=== PATIENT | female | born 1950 | race Two or more races ===

== ENCOUNTER 2020-09-22 12:54 | Outpatient (REF) | payer MEDICARE, MEDICAID, SELFPAY ==
--- NOTE | ~2020-09-22 | MM_ITS ---
EXAMINATION: MM SCREENING DIGITAL BREAST TOMOSYNTHESIS, BILATERAL CLINICAL INFORMATION: Screening. Asymptomatic. The lifetime risk of breast cancer based on the Tyrer-Cuzick Model is 5%. COMPARISON: Mammography: 04/16/2019, 01/28/2018, 01/12/2017 TECHNIQUE: Digital breast tomosynthesis is performed in both the craniocaudal and mediolateral oblique views along with computer-aided detection (CAD). Synthesized 2D images are generated from the tomosynthesis. FINDINGS: There are scattered areas of fibroglandular density (ACR BI-RADS breast composition Category b). There are no significant masses, abnormal calcifications, or other abnormalities. Parenchymal pattern is similar to prior exams. Benign bulky coarse calcification mid upper outer left breast is again noted as incidental finding. There are bilateral vascular and some scattered fine calcifications. No significant changes. MM/MM tomosynthesis screening BI IMPRESSION: No mammographic evidence of malignancy. ASSESSMENT: BI-RADS 2: Benign RECOMMENDATION: Routine annual mammography screening. This patient's information was entered into a reminder system with a target due date for their next mammogram.
== END 2020-09-22 12:55 | disposition home or self-care (01) ==
LOC: HO.MAMMO 12:54
PROVIDERS: Visit Provider Internal Medicine
DX: Z12.31 Encounter for screening mammogram for malignant neoplasm of breast (principal)
CPT/HCPCS: 77063; 77067

== ENCOUNTER 2020-12-28 12:59 | Outpatient (REF) | payer MEDICARE, MEDICAID, SELFPAY ==
--- NOTE | ~2020-12-28 | XR_ITS ---
EXAMINATION: XR LUMBAR SPINE XR HIP, RIGHT CLINICAL INFORMATION: Right leg pain. COMPARISON: None TECHNIQUE: AP, lateral, coned down, and bilateral oblique views of the lumbar spine. AP and frog-leg lateral views of the right hip. FINDINGS: Lumbar Spine: Normal vertebral body alignment. The lumbar lordosis is maintained. No acute fracture or subluxation. No loss of vertebral body height. Loss of intervertebral disc height with endplate osteophytes at L1-L2 and L2-L3. Bilateral facet arthropathy at L5-S1. Atherosclerotic calcifications. Right upper quadrant surgical clips. Right Hip: No acute fracture or dislocation. Mild joint space narrowing with tiny marginal osteophytes. No osseous erosion. Calcification adjacent to the greater tuberosity, which could indicate calcific tendinitis. Atherosclerotic calcifications. XR/XR lumbar spine 4V min IMPRESSION: Lumbar Spine: Mild degenerative disc disease at L1-L2 and L2-L3. Bilateral facet arthropathy at L5-S1. Right Hip: Mild osteoarthritis. Possible calcific tendinitis at the greater tuberosity.
--- NOTE | ~2020-12-28 | XR_ITS ---
EXAMINATION: XR LUMBAR SPINE XR HIP, RIGHT CLINICAL INFORMATION: Right leg pain. COMPARISON: None TECHNIQUE: AP, lateral, coned down, and bilateral oblique views of the lumbar spine. AP and frog-leg lateral views of the right hip. FINDINGS: Lumbar Spine: Normal vertebral body alignment. The lumbar lordosis is maintained. No acute fracture or subluxation. No loss of vertebral body height. Loss of intervertebral disc height with endplate osteophytes at L1-L2 and L2-L3. Bilateral facet arthropathy at L5-S1. Atherosclerotic calcifications. Right upper quadrant surgical clips. Right Hip: No acute fracture or dislocation. Mild joint space narrowing with tiny marginal osteophytes. No osseous erosion. Calcification adjacent to the greater tuberosity, which could indicate calcific tendinitis. Atherosclerotic calcifications. XR/XR hip RT min 2V IMPRESSION: Lumbar Spine: Mild degenerative disc disease at L1-L2 and L2-L3. Bilateral facet arthropathy at L5-S1. Right Hip: Mild osteoarthritis. Possible calcific tendinitis at the greater tuberosity.
== END 2020-12-28 13:00 | disposition home or self-care (01) ==
LOC: HO.XRAY 12:59
PROVIDERS: PCP Internal Medicine; Visit Provider Internal Medicine
DX: M79.604 Pain in right leg (principal)
CPT/HCPCS: 72110; 73502

== ENCOUNTER 2021-08-12 13:44 | Outpatient (REF) | payer MEDICARE, MEDICAID, SELFPAY ==
--- NOTE | ~2021-08-12 | MM_ITS ---
EXAMINATION: BONE DENSITOMETRY CLINICAL INDICATION: Menopause. COMPARISON: Previous BD dated 09/03/2018 and baseline BD dated 12/23/2015. TECHNIQUE: Using a [employer] DXA System (software version: 13.1) manufactured by [employer], dual-energy x-ray absorptiometry was performed of the lumbar spine and left hip. The images are of good technical quality. Summary results are attached. FINDINGS: AP SPINE L2-L4 (excluding L1): The data of L1-L4 has been changed to exclude the L1 vertebral body, because degenerative changes at this level may cause overestimation of lumbar spine density. Current: BMD 0.867 g/cm2, Z-score -1.5, T-score -2.8, osteoporosis, 11.7% decrease from previous, 13.5% decrease from baseline (<5% change is not significant). Prior: BMD 0.982 g/cm2. Baseline: BMD 1.002 g/cm2. LEFT FEMUR, NECK: Current: BMD 0.877 g/cm2, Z-score 0.4, T-score -1.2, osteopenia. Prior: BMD 0.887 g/cm2. Baseline: BMD 0.877 g/cm2. LEFT FEMUR, TOTAL: Current: BMD 0.939 g/cm2, Z-score 0.8, T-score -0.5, normal, 2.7% decrease from previous, 4.4% decrease from baseline (<5% change is not significant). Prior: BMD 0.965 g/cm2. Baseline: BMD 0.982 g/cm2. IDENTIFIED RISK FACTORS: Hysterectomy. Bilateral oophorectomy. Menopause. HISTORY OF FRACTURE: None listed. MEDICATIONS: None listed. MM/XR DEXA axial skeleton IMPRESSION: 1. DIAGNOSIS: Osteoporosis based on the lowest T-score value of -2.8 in the lumbar spine applying World Health Organization criteria. 2. 10-YEAR FRACTURE RISK PREDICTION, FRAX: According to the guidelines, FRAX calculation should only be performed on patients in the osteopenia bone density category. Therefore, FRAX was not performed on this patient. 3. Treatment Recommendations: NOF guidelines recommend consideration for treatment in postmenopausal women and men age 50 and older presenting with the following: -A hip or vertebral (clinical or morphometric) fracture. -T-score less than or equal to -2.5 at the femoral neck or spine after appropriate evaluation to exclude secondary causes. -Low bone mass at the hip or spine and a 10-year fracture probability by FRAX of greater than or equal to 3% for hip fracture or greater than or equal to 20% for major osteoporotic fracture based on the [place] adapted WHO algorithm. 4. Other Recommendations: All treatment decisions require clinical judgment and consideration of individual patient factors, including patient preferences, comorbidities, previous drug use, risk factors not captured in the FRAX model (e.g. frailty, falls, vitamin D deficiency, increased bone turnover, interval significant decline in bone density) and possible under or overestimation of fracture risk by FRAX. Additional medical evaluation for secondary cause of low bone mineral density may be appropriate. FUTURE SCAN RECOMMENDATION: People with diagnosed cases of osteoporosis or at high risk for fracture should have regular bone mineral density tests. For patients eligible for Medicare, routine testing is allowed once every 2 years. The testing frequency can be increased to one year for patients who have rapidly progressing disease, those who are receiving or discontinuing medical therapy to restore bone mass, or have additional risk factors.
== END 2021-08-12 13:45 | disposition home or self-care (01) ==
LOC: HO.MAMMO 13:44
PROVIDERS: PCP Internal Medicine; Visit Provider Internal Medicine
DX: Z13.820 Encounter for screening for osteoporosis (principal); Z78.0 Asymptomatic menopausal state; M81.0 Age-related osteoporosis without current pathological fracture
CPT/HCPCS: 77080

== ENCOUNTER 2021-12-14 13:01 | Outpatient (REF) | payer MEDICARE, MEDICAID, SELFPAY ==
--- NOTE | ~2021-12-14 | MM_ITS ---
EXAMINATION: MM SCREENING DIGITAL BREAST TOMOSYNTHESIS, BILATERAL CLINICAL INFORMATION: Screening. Asymptomatic. The lifetime risk of breast cancer based on the Tyrer-Cuzick Model is 5%. COMPARISON: Mammography: 09/22/2020, 04/16/2019, 01/28/2018 TECHNIQUE: Digital breast tomosynthesis is performed in both the craniocaudal and mediolateral oblique views along with computer-aided detection (CAD). Synthesized 2D images are generated from the tomosynthesis. FINDINGS: There are scattered areas of fibroglandular density (ACR BI-RADS breast composition Category b). There are no significant masses, abnormal calcifications, or other abnormalities. Parenchymal pattern is similar to prior studies. There is no developing density or architectural abnormality. Benign coarse calcification mid upper outer left breast and bilateral vascular and some punctate round calcifications again seen. The axilla and skin contours are unremarkable. No significant changes. MM/MM tomosynthesis screening BI IMPRESSION: No mammographic evidence of malignancy. ASSESSMENT: BI-RADS 2: Benign RECOMMENDATION: Routine annual mammography screening. This patient's information was entered into a reminder system with a target due date for their next mammogram.
== END 2021-12-14 13:02 | disposition home or self-care (01) ==
LOC: HO.MAMMO 13:01
PROVIDERS: PCP Internal Medicine; Visit Provider Internal Medicine
DX: Z12.31 Encounter for screening mammogram for malignant neoplasm of breast (principal)
CPT/HCPCS: 77063; 77067

== ENCOUNTER → 2022-02-16 16:15 | Outpatient (BNVA) | payer MEDICARE, MEDICAID, SELFPAY | PROVIDERS: PCP Internal Medicine; Visit Provider Internal Medicine Endocrinology, Diabetes & Metabolism | DX: M81.0 Age-related osteoporosis without current pathological fracture (principal) | CPT/HCPCS: 99202 ==

== ENCOUNTER 2022-05-01 09:52 | Outpatient (REF) | payer MEDICARE, MEDICAID, SELFPAY ==
--- NOTE | ~2022-05-01 | US_ITS ---
EXAMINATION: US ABDOMEN LIMITED CLINICAL INFORMATION: Right abdominal wall mass. Please evaluate for lipoma. COMPARISON: None TECHNIQUE: Real-time imaging of the right flank region as indicated by the patient. FINDINGS: The cutaneous, subcutaneous, muscular and fascial planes are unremarkable. No mass or fluid collection is seen. There is no foreign body. No lymphadenopathy is seen. No hernia defect is noted. US/US abdomen limited IMPRESSION: Unremarkable examination.
== END 2022-05-01 09:53 | disposition home or self-care (01) ==
LOC: HO.US 09:52
PROVIDERS: PCP Internal Medicine; Visit Provider Internal Medicine
DX: D17.1 Benign lipomatous neoplasm of skin and subcutaneous tissue of trunk (principal)
CPT/HCPCS: 76705

== ENCOUNTER 2022-05-24 09:05 | Outpatient (REF) | payer MEDICARE, MEDICAID, SELFPAY ==
[2022-05-24 11:07] LABS: Vitamin D 25-OH Total 62.9 ng/mL (>30)
[2022-05-26 22:34] LABS: Prot Elec - Alpha1 0.3 g/dL (0.2-0.3); Prot Elec - Alpha2 0.9 g/dL (0.5-0.9); Prot Elec - Beta 1 0.5 g/dL (0.4-0.6); Prot Elec - Beta 2 0.5 g/dL (0.2-0.5); Prot Elec - Gamma 1.4 g/dL (0.8-1.7); Prot Elec - Total Protein 7.6 g/dL (6.1-8.1)
== END 2022-05-24 09:06 | disposition home or self-care (01) ==
LOC: HO.LAB 09:05
PROVIDERS: PCP Internal Medicine; Visit Provider Internal Medicine Endocrinology, Diabetes & Metabolism
DX: M81.0 Age-related osteoporosis without current pathological fracture (principal)
CPT/HCPCS: 82306; 84100; 84165; 86335

== ENCOUNTER 2022-05-25 16:58 | Outpatient (REF) | payer MEDICARE, MEDICAID, SELFPAY ==
[2022-05-25 18:10] LABS: Total Volume 24 Hour Urine 950 mL
[2022-05-25 18:37] LABS: Creatinine, mg/dL 104.46
[2022-05-27 18:48] LABS: Calcium, 24 Hr Urine 150 mg/24 h; Calcium/Creatinine Ratio 161 mg/g creat (30-275); Creatinine 24Hr Urine 0.93 g/24 h (0.50-2.15)
== END 2022-05-25 16:59 | disposition home or self-care (01) ==
LOC: HO.LNP 16:58
PROVIDERS: Visit Provider Internal Medicine Endocrinology, Diabetes & Metabolism
DX: M81.0 Age-related osteoporosis without current pathological fracture (principal)
CPT/HCPCS: 82340; 82570

== ENCOUNTER → 2022-06-22 13:59 | Outpatient (BNVA) | payer MEDICARE, MEDICAID, SELFPAY | PROVIDERS: PCP Internal Medicine; Visit Provider Internal Medicine Endocrinology, Diabetes & Metabolism | DX: M81.0 Age-related osteoporosis without current pathological fracture (principal) | CPT/HCPCS: 99212 ==

== ENCOUNTER 2023-02-06 11:56 | Outpatient (REF) | payer MEDICARE, MEDICAID, SELFPAY ==
--- NOTE | ~2023-02-06 | MM_ITS ---
EXAMINATION: MM SCREENING DIGITAL BREAST TOMOSYNTHESIS, BILATERAL CLINICAL INFORMATION: Screening. Asymptomatic. Previous right breast excisional biopsy many years prior. COMPARISON: Mammography: 12/14/2021, 09/22/2020, 04/16/2019, 01/28/2018 TECHNIQUE: Digital breast tomosynthesis is performed in both the craniocaudal and mediolateral oblique views along with computer-aided detection (CAD). Synthesized 2D images are generated from the tomosynthesis. FINDINGS: There are scattered areas of fibroglandular density (ACR BI-RADS breast composition Category b). There are bilateral vascular calcifications scattered benign appearing parenchymal calcifications. Dystrophic calcification the upper outer left breast middle one third. There are no suspicious masses, suspicious grouped calcifications, or areas of architectural distortion in either breast. The parenchymal pattern is stable from prior exams. MM/MM tomosynthesis screening BI IMPRESSION: No mammographic evidence of malignancy. ASSESSMENT: BI-RADS BI-RADS 2 - Benign Findings RECOMMENDATION: Routine annual mammography screening. 1 year F/U This examination should not preclude the clinical evaluation of a suspicious palpable abnormality. This patient's information was entered into a reminder system with a target due date for their next mammogram.
== END 2023-02-06 11:57 | disposition home or self-care (01) ==
LOC: HO.MAMMO 11:56
PROVIDERS: PCP Internal Medicine; Visit Provider Internal Medicine
DX: Z12.31 Encounter for screening mammogram for malignant neoplasm of breast (principal)
CPT/HCPCS: 77063; 77067

== ENCOUNTER → 2023-02-06 12:00 | Outpatient (BNV) | payer MEDICARE, MEDICAID, SELFPAY | PROVIDERS: PCP Internal Medicine; Visit Provider Radiology Diagnostic Radiology | DX: Z12.31 Encounter for screening mammogram for malignant neoplasm of breast (principal) | CPT/HCPCS: 77063; 77067 ==

== ENCOUNTER 2023-06-07 09:58 | Outpatient (REF) | payer MEDICARE, MEDICAID, SELFPAY ==
[2023-06-07 14:50] LABS: MANUAL DIFF FLAG NO
[2023-06-07 15:21] LABS: Basophils Absolute Auto 0.1 X10*3/uL (0.0-0.2); Eosinophils Absolute Auto 0.2 X10*3/uL (0.0-0.4); Eosinophils Percent Auto 2.8 % (0-4); Hematocrit 39.5 % (37.0-47.0); Hemoglobin 12.5 g/dl (12.0-16.0); Imm Gran Abs Auto 0.02 X10*3/uL (0.00-0.03); Imm Gran Pct Auto 0.3 % (0.0-0.4); Lymphocytes Absolute Auto 2.1 X10*3/uL (1.2-4.9); Lymphocytes Percent Auto 28.7 % (20-40); Mean Corpuscular HGB Conc 31.6 g/dl (31.0-35.0); Mean Corpuscular Hemoglobin 26.8 pg (27.0-33.0); Mean Corpuscular Volume 84.6 fL (80.0-98.0); Mean Platelet Volume 11.5 fL (9.4-12.3); Monocytes Absolute Auto 0.6 X10*3/uL (0.1-1.2); Monocytes Percent Auto 8.2 % (2-11); Neutrophils Absolute Auto 4.3 x10*3/uL (2.0-8.3); Platelet Count 248 X10*3/uL (160-400); Red Blood Count 4.67 X10*6/uL (4.20-5.50); Red Cell Distribution Width 14.1 % (11.0-16.0); White Blood Count 7.2 X10*3/uL (4.8-10.8)
[2023-06-07 15:41] LABS: Alanine Aminotransferase 28 U/L (0-31); Albumin Level 4.3 g/dL (3.5-5.0); Alkaline Phosphatase 140 U/L (39-117); Anion Gap 15 (12-20); Aspartate Amino Transferase 33 U/L (5-31); Bilirubin Total 0.5 mg/dL (0.0-1.0); Blood Urea Nitrogen 13 mg/dL (9-16); Carbon Dioxide 24 mmol/L (22-29); Chloride 107 mmol/L (96-108); Cholesterol 156 mg/dL (<200); Estimated Glomerular Filt Rate > 60; Glucose Random 101 mg/dL (60-115); HDL Cholesterol 43 mg/dL (>40); LDL Cholesterol Calculated 96 mg/dL (<100); Sodium 142 mmol/L (135-145); Total Protein 8.2 g/dL (6.5-8.0); Triglycerides 89 mg/dL (<150)
[2023-06-07 15:46] LABS: TSH reflex Free T4 0.32 uIU/mL (0.32-4.0)
== END 2023-06-07 09:59 | disposition home or self-care (01) ==
LOC: HO.CHCLDS 09:58
PROVIDERS: Visit Provider Internal Medicine
DX: E03.9 Hypothyroidism, unspecified (principal); E11.9 Type 2 diabetes mellitus without complications; E78.2 Mixed hyperlipidemia
CPT/HCPCS: 36415; 80053; 80061; 84443; 85025

== ENCOUNTER 2023-11-22 08:47 | Outpatient (REF) | payer MEDICARE, MEDICAID, SELFPAY ==
[2023-11-22 14:55] LABS: Blood Urea Nitrogen 11 mg/dL (9-16); Estimated Glomerular Filt Rate > 60
== END 2023-11-22 08:48 | disposition home or self-care (01) ==
LOC: HO.CHCLDS 08:47
PROVIDERS: Visit Provider Internal Medicine
DX: E11.9 Type 2 diabetes mellitus without complications (principal)
CPT/HCPCS: 36415; 82565; 84520

== ENCOUNTER 2023-11-27 13:24 | Outpatient (REF) | payer MEDICARE, MEDICAID, SELFPAY ==
--- NOTE | ~2023-11-27 | CT_ITS ---
EXAMINATION: CT ABDOMEN AND PELVIS WITH CONTRAST CLINICAL INFORMATION: Abdominal pain. COMPARISON: Abdominal ultrasound dated 07/16/2018. TECHNIQUE: Multidetector volumetric images were obtained from the superior aspect of the liver through the pubic symphysis following administration 85 mL of Omnipaque 350 intravenous contrast. Sagittal and coronal reformatted images were obtained on the technologist's workstation. Oral contrast: No This CT examination was performed using dose optimization techniques as appropriate, variously including the following: *Automated exposure control *Adjustment of mA and/or kV according to patient size (this includes techniques or standardized protocols for targeted exams where dose is matched to indication/reason for exam; i.e. extremities or head) *Use of iterative reconstruction technique DLP: 356.00 mGy-cm FINDINGS: LUNG BASES: There is left base linear scar/subsegmental atelectasis. There are mitral annular calcifications. There is cardiomegaly. LIVER, GALLBLADDER, AND BILIARY TREE: The liver is normal in size, shape, and attenuation. No focal hepatic lesion or biliary ductal dilatation is present. The gallbladder is surgically absent. PANCREAS: Unremarkable. SPLEEN: Unremarkable. ADRENAL GLANDS: Unremarkable. KIDNEYS AND URETERS: The kidneys are normal in size, shape, and attenuation. At the upper pole of the left kidney (3:26), a 2 mm nonobstructing calculus is seen. No further urinary calculus is seen, and there is no obstructive uropathy. No perinephric stranding. There are simple appearing bilateral renal cysts, some too small for full characterization with CT. These require no imaging follow-up. BLADDER: Unremarkable. GASTROINTESTINAL TRACT: There is a small hiatus hernia. There are areas of wall thickening in the ascending and proximal transverse colon segments, versus pseudothickening from focal contraction. There is mild diverticulosis, without acute diverticulitis. The vermiform appendix is unremarkable. ABDOMINAL WALL: No significant hernia is appreciated. LYMPH NODES: Normal. VASCULAR: There is moderately severe aortoiliac atherosclerotic calcification. No abdominal aortic aneurysm or dissection is seen. PELVIC VISCERA: Surgically absent. No pelvic mass, free fluid or lymphadenopathy is seen. OSSEOUS STRUCTURES: There is multi-level thoracolumbar degenerative disease. No acute or aggressive osseous finding is noted. CT/CT abdomen pelvis w IV con IMPRESSION: 1. There are foci of wall thickening within the right hemicolon, versus pseudothickening due to underdistention. The possibilities of infectious colitis and inflammatory bowel disease are raised. Please correlate clinically. If of continued clinical concern, this can be further evaluated with a barium enema or upper endoscopy. No obstruction, free intraperitoneal air or abscess is seen. There is no appendicitis or diverticulitis. 2. A 2 mm nonobstructing left renal calculus is seen. No further urinary calculus is seen, and there is no obstructive uropathy. No urinary mass is noted. 3. There is a small hiatus hernia. 4. There are multi-level degenerative changes of the thoracolumbar spine. Fleischner guidelines were followed. Electronically signed by: Venkat Rodriguez MD 01/30/2024 02:55 PM RAMANDEEP GAONA
[2023-11-27] MEDS: iohexoL 350 MG/ML 100 ML INFUS..BTL IV (16:48)
[2023-11-27] MEDS: Barium Sulfate Oral (Vanilla) 450 ML ORAL.SUSP PO ×2 (16:49)
== END 2023-11-27 13:25 | disposition home or self-care (01) ==
LOC: HO.CT 13:24
PROVIDERS: PCP Internal Medicine; Visit Provider Student in an Organized Health Care Education/Training Program
DX: D17.1 Benign lipomatous neoplasm of skin and subcutaneous tissue of trunk (principal)
CPT/HCPCS: 74177; Q9967

== ENCOUNTER 2024-01-29 15:58 | Outpatient (REF) | payer MEDICARE, MEDICAID, SELFPAY | END 2024-01-29 15:59 | disposition home or self-care (01) | LOC: HO.CHCLNP 15:58 | PROVIDERS: Visit Provider Internal Medicine | DX: R35.0 Frequency of micturition (principal) | CPT/HCPCS: 87086 ==

== ENCOUNTER 2024-06-20 10:24 | Outpatient (REF) | payer MEDICARE, MEDICAID, SELFPAY ==
--- OUTSIDE RECORDS SUMMARY | 2024-06-20 11:52 | XMS_ITS | Encounter Summary ---
Author Organization [employer] Address [address] [place] [address] Care Team Providers Care Tire Vulcanizer Name Role Phone Stephen East MD Primary Care Prov ider Reason for Visit * Reason Onset Date Comments Med Change Request 06/12/2024 Encounter Details Date Type Department Care Team (Late st Contact Info) Description 06/12/2024 Telephone [facility] MEDICINE [address] [place] [address] Stephen East MD [address] [address] Med Change Request Social History Tobacco Use Types Packs/Day Years Used Date Smoking Tobacco: Never Smokeless Tobacco: Never Alcohol Use Standard Drinks/Week Comments Yes 0 (1 standard drink = 0.6 oz pur e alcohol) Socially Depression Answer Date Recorded Patient Health Questionnaire-9 Score 0 01/23/2023 Patient Health Questionnaire-9 Score 0 01/23/2023 Last PHQ-9: Questionnaire Data Not on file 1 03/25/2022 Housing Stability Answer Date Recorded What is your housing situation today? I have fam marcano 02/05/[address] you li ve. Do you have problems with any of the following? None of the above 02/05/2024 Food Insecurity Answer Date Recorded Within the past 12 months, y ou worried that your food would run out before you got money to buy more: Never True 02/05/2024 Within the past 12 months,th e food you bought just didn't last and you didn't have enough money to get more: Never True Transportation Answer Date Recorded In the past 12 months, has l ack of transportation kept you from medical appts, meetings, work or from getting things needed for daily living? No 02/05/2024 Utilities Answer Date Recorded In the past 12 months, has t he electric, gas, oil or water company threatened to shut off services in your home? No 02/05/2024 Depression Answer Date Recorded Patient Health Questionnaire-2 Score 0 01/23/2023 Internet Access Answer Date Recorded Internet Access Q1 Yes 02/05/2024 Internet Access Q2 Not on file 02/05/2024 Comments Unknown Sex and Gender Information Value Date Recorded Sex Assigned at Female 01/16/2022 10:15 AM EDT Legal Sex Female 10:15 AM EDT Gender Identity Female 01/16/2022 10:15 AM EDT Sexual Orientation Straight 01/16/2022 10 :15 AM EDT documented as of this encounter Miscellaneous Notes * Telephone Encounter - Louise Brian - 06/12/2024 4:22 PM EDT Tc from Fang with [facility] requesting medication Cholecalciferol 50 MCG (1999) tabletdispersible script to be change from tablets to capsules in order for insurance to cover medication Fang Henriquez) [phone] documented in this encounter Plan of Treatment Upcoming Encounters Date Type Department Care Team ([facility] st Contact Info) Description 07/16/2024 11:30 AM EDT Telemedicine [facility] [address] [place] [address] Stephen East MD [address] [place] [address] documented as of this encounter Visit Diagnoses Diagnosis Acquired hypothyroidism Unspecified hypothyroidism documented in this encounter Additional Health Concerns Assessment Noted Time PHQ-9 Depression Total Score: 0 01/24/20 1:40 PM EST documented as of this encounter Care Teams Tire Vulcanizer Relationship Specialty Start Date End Date Stephen East MD [address] [place] [id number] PCP - General Internal Medicine 08/12/19 documented as of this encounter
--- OUTSIDE RECORDS SUMMARY | 2024-06-20 11:52 | XMS_ITS | Encounter Summary ---
Author Organization [employer] [facility] Address [address] [place] [address] Care Team Providers Care Public Works Technician Name Role Phone Stephen aEst MD Primary Care Prov ider Encounter Details Date Type Department Care Team ([facility] Contact Info) Description 03/14/2022 Orders Only [facility] MEDICINE [address] [place] [address] Stephen East MD [address] [place], [place] [phone] COVID (Primary Dx) Social History Tobacco Use Types Packs/Day Years Used Date Smoking Tobacco: Never Assessed Comments Unknown Sex and Gender Information Value Date Recorded Sex Assigned at Female 01/16/2022 10:15 AM EDT Legal Sex Female 10:15 AM EDT Gender Identity Female 01/16/2022 10:15 AM EDT Sexual Orientation Straight 01/16/2022 10 :15 AM EDT documented as of this encounter Plan of Treatment Upcoming Encounters Date Type Department Care Team (Late Contact Info) Description 07/16/2024 11:30 AM EDT Telemedicine [facility] [address] [place], [place] [phone] Stephen East MD [address] [place], [place] [phone] documented as of this encounter Visit Diagnoses Diagnosis COVID- Primary documented in this encounter Care Teams Public Works Technician Relationship Specialty Start Date End Date AndreaStephen Bajwa MD [address] [place] [phone] PCP - General Internal Medicine 08/12/19 documented as of this encounter
--- OUTSIDE RECORDS SUMMARY | 2024-06-20 11:52 | XMS_ITS | Encounter Summary ---
Author Organization [employer] Address [address] [place] [address] Care Team Providers Care Merchandise Execution Leader Name Role Phone Stephen East MD Primary Care Prov ider Reason for Visit * Reason Onset Date Comments Call Back Request 06/09/2024 Encounter Details Date Type Department Care Team (Late st Contact Info) Description 06/09/2024 Telephone [facility] MED[facility]INE [address] [place] [address] Stephen East MD [address] [place] [address] Call Back Request Social History Tobacco Use Types Packs/Day [...] encounter Miscellaneous Notes * Telephone Encounter - Fitz Cormier - 06/09/2024 11:55 AM EDT Tc from pt stating that she missed the call for her Tele Appt. She attempted to call but Didn't geta Hold of someone till now. Contact pt at [phone] documented in this encounter Plan of Treatment Upcoming Encounters Date Type Department Care Team (Late st Contact Info) Description 07/16/2024 11:30 AM EDT Telemedicine [facility] MED [facility] P[facility] [address] [place] [address] Stephen East MD [address] [place] [address] documented as of this encounter Visit Diagnoses Not on filedocumented in this encounter Additional Health Concerns Assessment Noted Time PHQ-9 Depression Total Score: 0 01/24/20 23 1:40 PM EST documented as of this encounter Care Teams Merchandise Execution Leader Relationship Specialty Start Date End Date Stephen East MD [address] [place] [address] PCP - General Internal Medicine 08/12/19 documented as of this encounter
--- OUTSIDE RECORDS SUMMARY | 2024-06-20 11:52 | XMS_ITS | Clinical Summary ---
Author Organization [employer] Address [address] [place] [address] Care Team Providers Care Client Support Analyst Name Role Phone Stephen East MD Primary Care Prov ider Allergies Active Allergy Reactions Criticality Noted Date Comments Penicillins 06/28/2022 Medications naproxen (Naprosyn) 500 MG tablet TAKE 1 TABLET BY MOUTH TWICE DAILY WITH FOOD 60 tablet 1 01/26/20 23 Active pravastatin (Pravachol) 80 MG tabletIndications :Mixed hyperlipidemia Take 1 tablet (80 mg) by mouth in the morning. 90 tablet 3 05/23/19 24 Active dilTIAZem CD (Cardizem CD) 240 MG 24 hr capsule TAKE 1 CAPSULE(24 0 MG) BY MOUTH IN THE MORNING 90 capsule 3 07/27/19 24 Active levothyroxine (Synthroid, Levoxyl) 100 MCG tablet TAKE 1 TABLET(100 MCG) BY MOUTH IN THE MORNING 90 tablet 1 01/08/20 24 Active lisinopril 40 MG tabletIndications :Primary hypertension TAKE 1 TABLET(40 MG) BY MOUTH IN THE MORNING 90 tablet 1 01/08/20 24 Active spironolactone (Aldactone) 25 MG tablet Take 1 tablet (25 mg) by mouth Once per day. 30 tablet 11 06/13/19 25 026 Active omeprazole (PriLOSEC) [address] capsuleIndication s:Gastroesophagea l reflux disease without esophagitis Take 1 capsule (20 mg) by mouth before breakfast. Do not crush or chew. 90 capsule 3 06/13/19 25 026 Active Cholecalciferol 50 MCG (1999 UT) tablet dispersible Take 50 mcg by mouth Once per day. 30 tablet 3 06/13/19 25 Active cholecalciferol (Vitamin D-3) 50 MCG (1999 UT) capsuleIndication s:Acquired hypothyroidism Take 1 capsule (50 mcg) by mouth Once per day. 30 capsule 2 06/17/19 25 025 Active spironolactone (Aldactone) 25 MG tablet Take 1 tablet (25 mg) by mouth in the morning. 30 tablet 11 01/24/20 23 025 Discontinued( erapy completed) omeprazole (PriLOSEC) [address] capsuleIndication s:Gastroesophagea l reflux disease without esophagitis TAKE 1 CAPSULE(20 MG) BY MOUTH BEFORE BREAKFAST. DO NOT CRUSH OR CHEW 90 capsule 3 04/23/19 24 025 Discontinued(Re order (will not trigger notification to Pharmacy)) chlorthalidone (Hygroton) 25 MG tablet TAKE 1 TABLET(25 MG) BY MOUTH IN THE MORNING 90 tablet 3 07/27/19 24 025 Discontinued( erapy completed) Active Problems Problem Noted Date Diagnosed Date Frequency of urination 01/29/2024 Assessment & Plan (01/29/2024 6:06 PM EST): Found with leukocytes on urine, will start on nitrofurantoin, urine culture will be sent Chronic idiopathic constipation 01/29/2024 Assessment & Plan (03/31/2024 11:59 PM EST): Discussed with patient ct scan findings, she is currently asymptomatic, will continue same management, call back if worsening Assessment & Plan (01/29/2024 6:05 PM EST): Will start on miralax, told to increase fiber In diet, increase water intake, follow up as needed Bumps on skin 10/01/2023 Assessment & Plan (10/01/2023 3:56 PM EDT): Patient refers her right sided bump has increased in size, last ultrasound done did not showed any, mass/collection/hernia, will send a ct scan for evaluation Screening for colon cancer 03/22/2023 Assessment & Plan (03/22/2023 1:40 PM EST): Done on 07/2017 at [facility] due in 10 years Primary hypertension 06/28/2022 Assessment & Plan (06/12/2024 11:28 AM EDT): Uncontrolled, continue low sodium diet, keep bp log, will start on spironolactone, follow up in 1 month with bp log, target <140/90 Assessment & Plan (10/01/2023 3:44 PM EDT): Controlled, reinforced low sodium diet and exercise as tolerated, follow up in 4 months Assessment & Plan (05/23/2023 2:39 PM EST): Controlled, reinforced low sodium diet and exercise as tolerated, continue current treatment, target bp <130/80 follow up in 4 months Assessment & Plan (03/22/2023 2:21 PM EST): Controlled, reinforced low sodium diet and exercise as tolerated, will follow up in 3 months Assessment & Plan (02/27/2023 1:39 PM EST): Uncontrolled, patient refers started taking aldactone for the first 3 days and then stopped it, she does not monitor her blood pressure at home, told to restart medication and keep a bp log, will follow up in 1 month Assessment & Plan (01/23/2023 5:56 PM EST): Not at target, will add spironolactone, continue lisinopril/chlorthalidone/diltiazem. Reinforced low sodium diet and exercise as tolerated, will follow up in 1 month Assessment & Plan (06/28/2022 11:22 AM EDT): Controlled, reinforced low sodium diet and exercise as tolerated, continue lisinopril/chlorthalidone and diltiazem Gastroesophageal reflux disease without esophagi tis 06/28/2022 Assessment & Plan (06/28/2022 11:24 AM EDT): On omeprazole, reviewed lifestyle modification, no warning signs. 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 Examined patient and reviewed current condition, told to stay well hydrated and to try to increase physical activity, length of symptom is unknown. Prediabetes 03/29/2022 Assessment & Plan (01/29/2024 6:05 PM EST): A1c 6.0%, reinforced low carb/no sugar diet, will continue monitoring Assessment & Plan (10/01/2023 3:45 PM EDT): Continue with diet restrictions, avoid sugar and decrease carbohydrates, follow up in 3 months Eye exam done on 2023 Assessment & Plan (05/23/2023 2:40 PM EST): Managed with diet, her last A1c was 6.4%, continue low carb no sugar diet, follow up in 4 months Eye exam as per patient will be done this month Assessment & Plan (01/23/2023 5:54 PM EST): Has remained controlled with diet, A1c 6.4%, she is not interested in treatment for DM. Foot exam was unremarkable. Eye exam done on March as per patient Assessment & Plan (06/28/2022 11:24 AM EDT): Refers has cut down sugar/carbohydrate, will follow up in 3 months to repeat blood test Assessment & Plan (03/29/2022 12:56 PM EST): A1c increased to 6.7%, patient want to address diet, does not want to start treatment, reviewed risk, will follow up in 3 months Lipoma of abdominal wall 03/29/2022 Assessment & Plan (03/29/2022 12:58 PM EST): Will order ultrasound to confirm findings Other headache syndrome 03/14/2022 Acute cough 03/14/2022 Assessment & Plan (03/14/2022 12:12 PM EST): Patient started with symptoms 3 days ago, refers having headaches, fatigue, mild cough, no shortness of breath. Will start on paxlovid risk vs benefits discussed. In case of worsening symptoms told to visit er COVID 03/14/2022 Acquired hypothyroidism 01/23/2022 Assessment & Plan (06/12/2024 11:28 AM EDT): New labs ordered for guidance of therapy Assessment & Plan (05/23/2023 2:41 PM EST): On levothyroxine 100mcg, new labs will be ordered for guidance of therapy Encounters Date Type Department Care Team Description 06/12/2024 11:15 AM EDT Telemedicine [facility] [address] [place] [address] Stephen East MD Prediabetes (Primary Dx); Gastroesophageal reflux disease without esophagitis; Acquired hypothyroidism; Mixed hyperlipidemia; Primary hypertension 06/12/2024 Telephone [facility] [address] [place] [phone] Stephen East MD Med Change Request 06/12/2024 Travel 06/11/2024 Telephone [facility] [address] [place] [address] Stephen East MD chart prep 06/09/2024 Telephone [facility] [address] [place] [address] Stephen East MD No Show 06/09/2024 Telephone [facility] [address] [place] [phone] Stephen East MD Call Back Request 06/09/2024 Telephone [facility] [address] [place] [address] Stephen East MD 05/30/2024 Population Health Risk Score [facility] [address] [place] [id number] Provider, Population Health Generic 04/01/2024 Travel from Last 3 Months Immunizations Name Administration Dates Next Due TD (adult), 2 Lf tetanus tox oid, preservative free, adsorbed 10/07/2004 Social History Tobacco Use Types Packs/Day Years Used Date Smoking Tobacco: Never Smokeless Tobacco: Never Tobacco Cessation:Counseling Given: Not Answered Alcohol Use Standard Drinks/Week Comments Yes 0 [...] Orientation Straight 01/16/2022 10 :15 AM EDT Last Filed Vital Signs Vital Sign Reading Time Taken Comments Blood Pressure 151/82 06/12/2024 11:27 AM EDT Pulse 79 06/12/2024 11:27 AM EDT Temperature 37.1 ??C (98.7 ??F) 01/29/2024 11:[address] Respiratory Rate 20 01/29/2024 11:49 AM EST Oxygen Saturation - - Inhaled Oxygen Concentration - - Weight 69.4 kg (153 lb) 01/29/2024 11:49 AM EST Height 160 cm (5' 3 ) 01/29/2024 11:49 AM EST Body Mass Index 27.1 01/29/2024 11:49 AM EST Plan of Treatment Upcoming Encounters Date Type Department Care Team (Late st Contact Info) Description 07/16/2024 11:30 AM EDT Telemedicine [facility] [address], [place] [phone] Stephen East MD [address] [place], [place] [phone] Health Maintenance Due Date Last Done Comments CT Colonography 1948 FIT DNA/Cologuard 1948 FIT 1948 FOBT 1948 Sigmoidoscopy 1948 Eye Exam 1958 Alcohol/Substance Use Screening 1960 Diabetes: Urine Protein Screening 08/12/1967 Hepatitis A Vaccines (1 of 2 - Risk 2-dose series) 08/12/1967 Pneumococcal Vaccine: 50+ Years (1 of 2 - PCV) 08/12/1967 Zoster Vaccines (1 of 2) 1998 DTaP/Tdap/Td Vaccines (1 - Tdap) 10/08/2004 10/07/2004 Hepatitis B Vaccines (1 of 3 - Risk 3-dose series) 2008 RSV Patients and Patients Aged 60 years or older (1 - 1-dose 75+ series) 08/12/2023 COVID-19 Vaccine (3 - season) 2023 08/05/2020, 07/08/2020 Influenza Vaccine (#1) 2023 Depression Screening 01/24/2024 01/23/2023, 01/24/20 23 Diabetes: Foot Exam 01/24/2024 01/23/2023, 01/23/2023, 01/23/2023, Additional history exists Lipid Panel 06/06/2024 06/07/2023, 06/10/2021, 01/05/2021, Additional history exists Diabetes: Hemoglobin A1C 07/28/2024 024, 01/23/2023, 03/29/2022, Additional history exists Tobacco Screening 01/28/2025 01/29/2024 SDOH Screening 02/04/2025 02/05/2024 Colonoscopy 08/01/2027 07/31/2017 Colorectal Cancer Screening 08/01/2027 Hepatitis C Screening Completed 08/24/2021 HIB Vaccines Aged Out No longer eligi ble based on patient's age to complete this topic HPV Vaccines Aged Out No longer eligi ble based on patient's age to complete this topic IPV Vaccines Aged Out No longer eligi ble based on patient's age to complete this topic Meningococcal Vaccine Aged Out No buddy palmer eligible based on patient's age to complete this topic RSV under 20 months Aged Out No longe r eligible based on patient's age to complete this topic Rotavirus Vaccines Aged Out No longer eligible based on patient's age to complete this topic Procedures Procedure Name Priority Date/Time Associated Diagnosis Comments POCT GLYCATED HEMOGLOBIN, TOTAL Routine 01/29/2024 1:25 PM EST Type 2 diabetes mellitus without complication, without long-term current use of insulin ([facility]) LIPID PANEL, STANDARD Routine 06/07/2023 10:00 AM EDT Mixed hyperlipidemia ZZZ HISTORICAL HEPATITIS C AB W/REFL TO HCV RNA, QN, PCR Routine 08/24/2021 11:02 AM EDT HM COLONOSCOPY Routine 07/31/2017 1:22 PM EDT from Last 3 Months or Most Recently Relevant to Health Maintenance Results * (ABNORMAL) POCT HGB A1C (01/29/2024 1:25 PM EST) Hemoglobin A1C 6.1(A) 4.0 - 6.0 % QC Media Lot # [id number] Lot# Expiration Date [id number] Blood 01/29/2024 1:25 PM EST Stephen Coelho MD POINT OF CARE TEST ENTER/EDIT ORDERABLES Final Result * Lipid Panel, Standard (06/07/2023 10:00 AM EDT) Triglycerides 89 <150 mg/dL [facility] Comment:Desirable Triglyceri de: less than 150 mg/dLBorderline High Triglyceride 150-199 mg/dLHigh Triglyceride: 200-499 mg/dLVery High Triglyceride: greater than or equal to 5OO mg/dL Cholesterol 156 <200 mg/dL [facility] Comment:Desirable Cholestero l: less than 200 mg/dLBorderline High Cholesterol: 200-239 mg/dLHigh Cholesterol: greater than 239 mg/dL LDL Cholesterol Calculated 96 <100 mg/dL [facility] Comment:Desirable LDL: less than 100 mg/dLNear Optimal/Above Optimal LDL: 110- 129 mg/dLBorderline High LDL: 130-159 mg/dLHigh LDL: 160-189 mg/dLVery High LDL: greater than or equal to 190 mg/dL HDL Cholesterol 43 >40 mg/dL [facility] Comment:Desirable HDL: great er than 40 mg/dL Note: This HDL assay may give artificially low results in patients with liver disease. Blood Venous blood specimen / Unknown 06/07/2023 10:00 AM EDT 06/07/2023 2:45 PM EDT Stephen Coelho MD LAB BLOOD ORDERABL ES Final Result [facility] [address] [place], [place] [phone] * HEPATITIS C AB W/REFL TO HCV RNA, QN, PCR (08/24/2021 11:02 AM EDT) HEPATITIS C ANTIBODY NON-REACT GRACY NON-REACT GRACY [facility] INDEX 0.06 <1.00 [facility] Comment: ?? HCV antibody was non-reactive. There is no laboratory ?? evidence of HCV infection. ?? In most cases, no further action is required. However, if recent HCV exposure is suspected, a test for HCV RNA (test code 25167) is suggested. ?? For additional information please refer to http://[employer].eMazeMe/faq/YDY79c6 (This link is being provided for informational/ educational purposes only.) ?? 08/24/2021 11:0 2 AM EDT Stephen Coelho MD HISTORICAL/NON ORD ERABLE LABS Final Result [facility] Any[facility] [address] * Hm Colonoscopy (07/31/2017 1:22 PM EDT) Sasha Provider HEALTH MAINTENANCE Final Result from Last 3 Months or Most Recently Relevant to Health Maintenance Insurance MEDICARE [facility] Care Teams Client Support Analyst Relationship Specialty Start Date End Date Stephen East MD [address] [place] [address] [place] [id number] PCP - General Internal Medicine 08/12/19
--- OUTSIDE RECORDS SUMMARY | 2024-06-20 11:52 | XMS_ITS | Encounter Summary ---
Author Organization [employer] Address [address] [place] [address] Care Team Providers Care Water Pump Installer Name Role Phone Stephen East MD Primary Care Prov ider Encounter Details Date Type Department Care Team (Late st Contact Info) Description 07/06/2023 Orders Only [facility] [address] [place] [address] Provider, MD Sasha Social History Tobacco Use Types Packs/Day Years [...] housing situation today? I have fam marcano 01/23/[address] you li ve. Do you have problems with any of the following? None of the above 01/23/2023 Food Insecurity Answer Date Recorded Within the past 12 months, y ou worried that your food would run out before you got money to buy more: Never True 01/23/2023 Within the past 12 months,th e food you bought just didn't last and you didn't have enough money to get more: Never True 09/2022 Transportation Answer Date Recorded In the past 12 months, has l ack of transportation kept you from medical appts, meetings, work or from getting things needed for daily living? No 01/23/2023 Utilities Answer Date Recorded In the past 12 months, has t he electric, gas, oil or water company threatened to shut off services in your home? No 01/23/2023 Depression Answer Date Recorded Patient Health Questionnaire-2 Score 0 01/23/2023 Comments Unknown Sex and Gender Information Value Date Recorded Sex Assigned at Female 01/16/2022 10:15 AM EDT Legal Sex Female 10:15 AM EDT Gender Identity Female 01/16/2022 10:15 AM EDT Sexual Orientation Straight 01/16/2022 10 :15 AM EDT documented as of this encounter Plan of Treatment Upcoming Encounters Date Type Department Care Team (Late st Contact Info) Description 07/16/2024 11:30 AM EDT Telemedicine [facility] [address] [place] [address] Stephen East MD [address] [place] [address] documented as of this encounter Procedures Procedure Name Priority Date/Time Associated Diagnosis Comments HM COLONOSCOPY Routine 07/31/2017 1:22 PM EDT documented in this encounter Results * Hm Colonoscopy (07/31/2017 1:22 PM EDT) Historical Provider HEALTH MAINTENANCE Final Result documented in this encounter Visit Diagnoses Not on filedocumented in this encounter Additional Health Concerns Assessment Noted Time PHQ-9 Depression Total Score: 0 01/24/20 23 1:40 PM EST documented as of this encounter Care Teams Water Pump Installer Relationship Specialty Start Date End Date Stephen East MD [address] [place] [address] PCP - General Internal Medicine 08/12/19 documented as of this encounter
--- OUTSIDE RECORDS SUMMARY | 2024-06-20 11:52 | XMS_ITS | Encounter Summary ---
Author Organization [employer] Address [address] [place] [address] Care Team Providers Care Order Entry Representative Name Role Phone Stephen East MD Primary Care Prov ider Encounter Details Date Type Department Care Team ([facility] Contact Info) Description 03/29/2022 Orders Only [facility] [address] [place] [address] Stephen East MD [address] [place], [place] [phone] Social History Tobacco Use Types Packs/Day Years Used Date Smoking Tobacco: Never Assessed Comments Unknown Sex and Gender Information Value Date Recorded Sex Assigned at Female 01/16/2022 10:15 AM EDT Legal Sex Female 10:15 AM EDT Gender Identity Female 01/16/2022 10:15 AM EDT Sexual Orientation Straight 01/16/2022 10 :15 AM EDT COVID-19 Exposure Response Date Recorded In the last 10 days, have yo u been in contact with someone who was confirmed or suspected to have Coronavirus/COVID-19? No / Unsure 03/29/2022 11:21 AM EST documented as of this encounter Plan of Treatment Upcoming Encounters Date Type Department Care Team ([facility] Contact Info) Description 07/16/2024 11:30 AM EDT Telemedicine [facility] [address] [place], [place] [phone] Stephen East MD [address] [place] [address] documented as of this encounter Visit Diagnoses Not on filedocumented in this encounter Care Teams Order Entry Representative Relationship Specialty Start Date End Date Stephen East MD [address] [place] [address] PCP - General Internal Medicine 08/12/19 documented as of this encounter
--- OUTSIDE RECORDS SUMMARY | 2024-06-20 11:52 | XMS_ITS | Clinical Summary ---
Author Organization [facility] Address [address] [place] [address] Phone Care Team Providers Care Tank Calibrator Name Role Phone Stephen East Primary Care Provide r Allergies Active Allergy Reactions Criticality Noted Date Comments Penicillins Other 02/22/2024 A burning on my skin Medications dilTIAZem CD (CARDIZEM CD) 240 mg 24 hr capsule TAKE 1 CAPSULE(240 MG) BY MOUTH IN THE MORNING 07/27/2023 Active levothyroxine (SYNTHROID, LEVOTHROID) 100 mcg tablet TAKE 1 TABLET(100 MCG) BY MOUTH IN THE MORNING 01/08/2024 Active lisinopril (PRINIVIL,ZESTR IL) 40 mg tablet TAKE 1 TABLET(40 MG) BY MOUTH IN THE MORNING 01/08/2024 Active cholecalciferol (VITAMIN D-3) 125 mcg (5,000 unit) capsule Take 1 capsule (5,000 Units total) by mouth 1 (one) time each day. 08/24/2023 Active Active Problems Problem Noted Date Diagnosed Date Pain in right finger(s) 03/17/2024 Encounters Date Type Department Care Team Description 06/04/2024 10:15 AM EDT Office Visit Orthopedic Surgery [facility] [address] [facility] [address] [place] [address] Narendra Aguilera MD Closed displaced fracture of proximal phalanx of right little finger, initial encounter (Primary Dx); Nondisplaced fracture of proximal phalanx of right ring finger, initial encounter for closed fracture 05/26/2024 1:15 PM EDT Treatment [facility] [address] [phone] Jayne Medley, OT Pain in right finger(s) (Primary Dx) 05/20/2024 1:15 PM EST Treatment [facility] [address] [place] [phone] Jayne Medley, OT Pain in right finger(s) (Primary Dx) 05/12/2024 1:15 PM EST Treatment [facility] [address] [place] [phone] Jayne Medley, OT Pain in right finger(s) (Primary Dx) 05/05/2024 1:15 PM EST Treatment [facility] [address] [phone] Jayne Medley, OT Pain in right finger(s) (Primary Dx) 04/28/2024 1:15 PM EST Treatment [facility] [address] [phone] Jayne Medley, OT Pain in right finger(s) (Primary Dx) 04/23/2024 10:00 AM EST Office Visit Orthopedic Surgery - [address] [phone] Narendra Aguilera MD History of fracture (Primary Dx) 04/21/2024 1:15 PM EST Treatment [facility] [address] [phone] Jayne Medley, OT Pain in right finger(s) (Primary Dx) 04/14/2024 1:15 PM EST Treatment [facility] [address] [place] [phone] Jayne Medley, OT Pain in right finger(s) (Primary Dx) 04/07/2024 1:15 PM EST Treatment [facility] [address] [phone] Jayne Medley, OT Pain in right finger(s) (Primary Dx) 04/02/2024 10:45 AM EST Office Visit Orthopedic Surgery [facility] [address] [facility] [address] [place] [address] Narendra Aguilera MD Nondisplaced fracture of proximal phalanx of right ring finger, initial encounter for closed fracture (Primary Dx); Closed displaced fracture of proximal phalanx of right little finger, initial encounter 03/24/2024 1:15 PM EST Treatment [facility] 175 [facility] [address] [place] [phone] Jayne Medley OT Pain in right finger(s) (Primary Dx) from Last 3 Months Medical History Medical History Date Comments Hypertension Social History Tobacco Use Types Packs/Day Years Used Date Smoking Tobacco: Never Assessed Comments Unknown Sex and Gender Information Value Date Recorded Sex Assigned at Female 02/22/2024 12:53 PM EST Legal Sex Female 5:01 AM EST Gender Identity Female 02/22/2024 12:53 PM EST Sexual Orientation Straight 02/22/2024 12 :53 PM EST Obstetrics History Last Filed Vital Signs Vital Sign Reading Time Taken Comments Blood Pressure 161/67 02/22/2024 11:02 AM EST Pulse 86 02/22/2024 11:02 AM EST Temperature 36.6 ??C (97.9 ??F) 02/22/2024 11:[address] Respiratory Rate 20 02/22/2024 11:02 AM EST Oxygen Saturation 99% 02/22/2024 11:02 AM EST Inhaled Oxygen Concentration - - Weight 72.6 kg (160 lb) 06/04/2024 10:31 AM EDT Height 160 cm (5' 3 ) 06/04/2024 10:31 AM EDT Body Mass Index 28.34 06/04/2024 10:31 AM EDT Plan of Treatment Upcoming Encounters Date Type Department Care Team (Late st Contact Info) Description 08/04/2024 10:30 AM EDT Office Visit Orthopedic Surgery [facility] [address] [facility] [address] [place] [phone] Narendra Aguilera MD [address] [facility] [address] [place] [address] Health Maintenance Due Date Last Done Comments Pneumococcal Vaccine: 50+ Years (1 of 1 - PCV) 1998 Zoster Vaccines (1 of 2) 1998 DTaP,Tdap,and Td Vaccines (2 - Td or Tdap) 10/07/2014 10/07/2004 RSV Immunization Adult Patients (1 - 1-dose 75+ series) 08/12/2023 COVID-19 Vaccine (3 - 2023-2 5 season) 2023 08/05/2020, 07/08/2020 Influenza Vaccine (#1) 2023 Colorectal Cancer Screening: Colonoscopy 02/22/2024 Depression Screening 02/22/2024 01/23/2023 Falls Risk Assessment 02/22/2024 Hepatitis C Screening 02/22/2024 Hypertension/CHF/CAD Annual BMP Blood Test 02/22/2024 Medicare Annual Wellness Visit 02/22/2024 Osteoporosis Screening (Bone Density Screening) 02/22/2024 Social Influencers of Health Screening 02/22/2024 Cholesterol Screening (Lipid Panel) 06/06/2028 06/07/2023 HIB Vaccines Aged Out No longer eligi ble based on patient's age to complete this topic HPV Vaccines Aged Out No longer eligi ble based on patient's age to complete this topic Hepatitis A Vaccines Aged Out No long er eligible based on patient's age to complete this topic Hepatitis B Vaccines Aged Out No long er eligible based on patient's age to complete this topic IPV Vaccines Aged Out No longer eligi ble based on patient's age to complete this topic MMR Vaccines Aged Out No longer eligi ble based on patient's age to complete this topic Meningococcal ACWY Vaccine Aged Out N o longer eligible based on patient's age to complete this topic Meningococcal B Vacine Aged Out No lo nger eligible based on patient's age to complete this topic RSV Immunization Patients Under 20 months Aged Out No longer eligible b ased on patient's age to complete this topic Varicella Vaccines Aged Out No longer eligible based on patient's age to complete this topic Goals Goal Patient Goal Type Associated Problems Recent Progress Patient-Stated? Author <enter goal here> General Yes Jayne Medley, OT Note: REGAIN FUNCTIONAL USE RIGHT HAND STGS 6 TO 8 VISITS General On track( 025 3:07 PM EST) No Jayne Medley, OT Note: # 1 NO VISIBLE EDEMA # 2 IMPROVE RIGHT WRIST EXTENSION FROM 40 TO 60 DEGREES WITH GOOD MINUS STRENGTH TO WEIGHTBEAR # 3 IMPROVE SUPINATION FROM 50 TO 70 DEGREES TO RECEIVE ITEMS INTO PALM # 4 IMPROVE THUMB EXTENSION FROM 30 TO 50 DEGREES UPON REACH # 5 IMPROVE THUMB IP FLEXION FROM 15 TO 40 DEGREES TO OPPOSE TO ALL DIGITS # 6 ACHIEVE ALL DIGIT FLEXION WITHIN 1 CM OF THE DPC # 7 ACHIEVE RIGHT ASSISTANT TODDLER TEACHER TO AT LEAST 25 POUNDS = 50 PERCENT OF THE LEFT Procedures Procedure Name Priority Date/Time Associated Diagnosis Comments XR FINGERS 2+ VIEWS RIGHT Routine 04/23/2024 10:12 AM EST History of fracture XR FINGERS 2+ VIEWS RIGHT Routine 04/02/2024 11:00 AM EST Follow-up exam from Last 3 Months Results * XR Fingers 2+ Views Right (04/23/2024 10:12 AM EST) Only the most recent of2 resultswithin the time period is included. Anatomical Region Laterality Modality Upper Extremities, Fingers Right Compu gloria Radiography Narrative 04/23/2024 10:22 AM EST Three-view x-ray of the right ring and small finger obtained independently reviewed today in clinic and demonstrate healing of the previous proximal phalanx fractures of the ring and small finger. ??There is callus formation, there is some extension deformity at the small finger and less severe at the ring finger. ?? Impression: Healed fractures of the proximal phalanx of the ring and small finger. Narendra Aguilera MD IMG XR PROCEDURES Final Result from Last 3 Months Insurance MEDICARE MEDICAID - [place] Care Teams Tank Calibrator Relationship Specialty Start Date End Date Stephen East [address] [place] [phone] PCP - General Internal Medicine 06/04/24
--- OUTSIDE RECORDS SUMMARY | 2024-06-20 11:52 | XMS_ITS | Encounter Summary ---
Author Organization [employer] Address [address] [facility] 7[address] [place] [address] Care Team Providers Care Assistant Manager Name Role Phone Stephen East MD Primary Care Prov ider Encounter Details Date Type Department Care Team (Late Contact Info) Description 03/14/2022 Telephone [facility] [address] [place] [address] Stephen East MD [address] [place] [address] Social History Tobacco Use Types Packs/Day Years [...] Upcoming Encounters Date Type Department Care Team ([facility] Contact Info) Description 07/16/2024 11:30 AM EDT Telemedicine [facility] [address] [place], [place] [phone] Stephen East MD [address] [place] [address] documented as of this encounter Visit Diagnoses Not on filedocumented in this encounter Care Teams Assistant Manager Relationship Specialty Start Date End Date AndreaStephen Bajwa MD [address] [place] [phone] PCP - General Internal Medicine 08/12/19 documented as of this encounter
[2024-06-20 14:06] LABS: MANUAL DIFF FLAG NO
[2024-06-20 14:12] LABS: Basophils Absolute Auto 0.1 X10*3/uL (0.0-0.2); Eosinophils Absolute Auto 0.2 X10*3/uL (0.0-0.4); Eosinophils Percent Auto 2.6 % (0-4); Hematocrit 38.3 % (37.0-47.0); Hemoglobin 12.1 g/dl (12.0-16.0); Imm Gran Abs Auto 0.02 X10*3/uL (0.00-0.03); Imm Gran Pct Auto 0.3 % (0.0-0.4); Lymphocytes Absolute Auto 1.7 X10*3/uL (1.2-4.9); Lymphocytes Percent Auto 29.3 % (20-40); Mean Corpuscular HGB Conc 31.6 g/dl (31.0-35.0); Mean Corpuscular Hemoglobin 25.8 pg (27.0-33.0); Mean Corpuscular Volume 81.7 fL (80.0-98.0); Mean Platelet Volume 11.3 fL (9.4-12.3); Monocytes Absolute Auto 0.5 X10*3/uL (0.1-1.2); Monocytes Percent Auto 8.1 % (2-11); Neutrophils Absolute Auto 3.4 x10*3/uL (2.0-8.3); Neutrophils Percent Auto 58.7 % (45-73); Platelet Count 287 X10*3/uL (160-400); Red Blood Count 4.69 X10*6/uL (4.20-5.50); Red Cell Distribution Width 15.5 % (11.0-16.0); White Blood Count 5.8 X10*3/uL (4.8-10.8)
[2024-06-20 15:02] LABS: Creatinine Urine 166.26 mg/dL; Microalbum/Creatinine Ratio Ur 6.6 ug/mg cr (<30)
[2024-06-20 15:02] LABS: Alanine Aminotransferase 22 U/L (0-31); Anion Gap 11 (12-20); Aspartate Amino Transferase 46 U/L (5-31); Bilirubin Total 0.5 mg/dL (0.0-1.0); Blood Urea Nitrogen 17 mg/dL (9-16); Calcium 10.1 mg/dL (8.4-10.2); Carbon Dioxide 23 mmol/L (22-29); Chloride 111 mmol/L (96-108); Cholesterol 198 mg/dL (<200); Estimated Glomerular Filt Rate > 60; Glucose Random 104 mg/dL (60-115); HDL Cholesterol 40 mg/dL (>40); LDL Cholesterol Calculated 131 mg/dL (<100); Potassium 4.3 mmol/L (3.3-5.1); Sodium 141 mmol/L (135-145); TSH reflex Free T4 0.85 uIU/mL (0.32-4.0); Total Protein 7.4 g/dL (6.5-8.0); Triglycerides 135 mg/dL (<150)
[2024-06-20 15:28] LABS: Alkaline Phosphatase 144 U/L (39-117)
== END 2024-06-20 10:25 | disposition home or self-care (01) ==
LOC: HO.CHCLDS 10:24
PROVIDERS: Visit Provider Internal Medicine
DX: R73.03 Prediabetes (principal); E03.9 Hypothyroidism, unspecified; E78.2 Mixed hyperlipidemia
CPT/HCPCS: 36415; 80053; 80061; 82043; 82570; 84443; 85025

== ENCOUNTER → 2024-11-10 12:45 | Outpatient (BNV) | payer MEDICARE, MEDICAID, SELFPAY | PROVIDERS: PCP Internal Medicine; Visit Provider Radiology Body Imaging | DX: Z12.31 Encounter for screening mammogram for malignant neoplasm of breast (principal) | CPT/HCPCS: 77063; 77067 ==

== ENCOUNTER 2024-11-10 12:49 | Outpatient (REF) | payer MEDICARE, MEDICAID, SELFPAY ==
--- OUTSIDE RECORDS SUMMARY | 2024-11-10 13:57 | XMS_ITS | Clinical Summary ---
Author Organization [facility] Address [address] [place] [address] Phone Care Team Providers Care Personnel Consultant Name Role Phone Stephen East Primary Care [...] Diagnosed Date Pain in right finger(s) 03/17/2024 Medical History Medical History Date Comments Hypertension [...] 86 02/22/2024 11:02 AM EST Temperature 36.6 C (97.9 F) 02/22/2024 11:02 AM EST Respiratory Rate 20 02/22/2024 11:02 AM EST Oxygen Saturation 99% 02/22/2024 11:02 AM EST Inhaled Oxygen Concentration - - Weight 71.7 kg (158 lb) 08/04/2024 10:34 AM EDT Height 160 cm (5' 2.99 ) 08/04/2024 10:34 AM EDT Body Mass Index 28 08/04/2024 10:34 AM EDT Plan of Treatment Health Maintenance Due Date Last Done Comments Pneumococcal Vaccine: 50+ Years (1 of 1 - PCV) 1998 Zoster Vaccines (1 of 2) 1998 DTaP,Tdap,and Td Vaccines (2 - Td or Tdap) 10/07/2014 10/07/2004 RSV Immunization Adult Patients (1 - 1-dose 75+ series) 08/12/2023 COVID-19 Vaccine (3 - 2023-2 5 season) 2023 08/05/2020, 07/08/2020 Falls Risk Assessment 02/22/2024 Hepatitis C Screening 02/22/2024 Medicare Annual Wellness Visit 02/22/2024 Osteoporosis Screening (Bone Density Screening) 02/22/2024 Social Influencers of Health Screening 02/22/2024 Depression Screening 03/19/2024 Influenza Vaccine (#1) 2024 Hypertension/CHF/CAD Annual BMP Blood Test 06/20/2025 06/20/2024 Cholesterol Screening (Lipid Panel) 06/20/2029 06/20/2024, 06/07/2023 HIB Vaccines Aged Out No longer [...] age to complete this topic Meningococcal B Vaccine Aged Out No l onger eligible based on patient's age to complete [...] OF THE DPC # 7 ACHIEVE RIGHT OIL TREATER TO AT LEAST 25 POUNDS = 50 PERCENT OF THE LEFT Insurance MEDICARE MEDICAID - [place] Care Teams Personnel Consultant Relationship Specialty Start Date End Date Stephen East [address] [place] [id number] PCP - General Internal Medicine 06/04/24
--- OUTSIDE RECORDS SUMMARY | 2024-11-10 13:57 | XMS_ITS | Encounter Summary ---
Author Organization [employer] Address [address] [facility] [address] [place] [address] Care Team Providers Care Chick Grader Name Role Phone Stephen East MD Primary Care Prov ider Reason for Visit * Reason Onset Date Comments Call Back Request 06/09/2024 Encounter Details Date Type Department Care Team (Late st Contact Info) Description 06/09/2024 Telephone [facility] [address] [place] [address] Stephen East MD [address] [place] [address] Call Back Request Social History Tobacco Use [...] of someone till now. Contact pt at [phone] documented in this encounter Plan of Treatment Not on file documented as of this encounter Visit Diagnoses Not on filedocumented in this encounter Additional Health Concerns Assessment Noted Time PHQ-9 Depression Total Score: 0 01/24/20 23 1:40 PM EST documented as of this encounter Care Teams Chick Grader Relationship Specialty Start Date End Date Stephen East MD [address] [place] [phone] PCP - General Internal Medicine 08/12/19 documented as of this encounter
== END 2024-11-10 12:50 | disposition home or self-care (01) ==
LOC: HO.MAMMO 12:49
PROVIDERS: PCP Internal Medicine; Visit Provider Internal Medicine
DX: Z12.31 Encounter for screening mammogram for malignant neoplasm of breast (principal)
CPT/HCPCS: 77063; 77067

== ENCOUNTER 2025-01-13 09:39 | Outpatient (REF) | payer MEDICARE, MEDICAID, SELFPAY ==
--- OUTSIDE RECORDS SUMMARY | 2025-01-13 11:10 | XMS_ITS | Encounter Summary ---
Author Organization [employer] Address [address] [facility] [address] [place] [address] Care Team Providers Care Otr Flatbed Driver Name Role Phone Stephen East MD Primary Care Prov ider Reason for Visit * Reason Onset Date Comments Call Back Request 06/09/2024 Encounter Details Date Type Department Care Team (Late st Contact Info) Description 06/09/2024 Telephone [facility] [address] [place] [address] Stephen East MD [address] [place] [address] Call Back Request Social History Tobacco Use [...] of someone till now. Contact pt at [phone] documented in this encounter Plan of Treatment Not on file documented as of this encounter Visit Diagnoses Not on filedocumented in this encounter Additional Health Concerns Assessment Noted Time PHQ-9 Depression Total Score: 0 01/24/20 23 1:40 PM EST documented as of this encounter Care Teams Otr Flatbed Driver Relationship Specialty Start Date End Date Stephen East MD [address] [place] [phone] PCP - General Internal Medicine 08/12/19 documented as of this encounter
--- OUTSIDE RECORDS SUMMARY | 2025-01-13 11:10 | XMS_ITS | Encounter Summary ---
Author Organization [employer] Address [address] [facility] 7t [place] [address] Care Team Providers Care Ethnic Studies Professor Name Role Phone Stephen East MD Primary Care Prov ider Encounter Details Date Type Department Care Team (Late st Contact Info) Description 03/14/2022 Orders Only [facility] [address] [place], [place] [phone] Stephen East MD [address] [place] [address] COVID (Primary Dx) Social History Tobacco Use Types Packs/Day Years Used Date Smoking Tobacco: Never Assessed Comments Unknown Sex and Gender Information Value Date Recorded Sex Assigned at Female 01/16/2022 10:15 AM EDT Legal Sex Female 10:15 AM EDT Gender Identity Female 01/16/2022 10:15 AM EDT Sexual Orientation Straight 01/16/2022 10 :15 AM EDT documented as of this encounter Plan of Treatment Not on file documented as of this encounter Visit Diagnoses Diagnosis COVID- Primary documented in this encounter Care Teams Ethnic Studies Professor Relationship Specialty Start Date End Date Stephen East MD [address] [place] [address] PCP - General Internal Medicine 08/12/19 documented as of this encounter
--- OUTSIDE RECORDS SUMMARY | 2025-01-13 11:10 | XMS_ITS | Clinical Summary ---
Author Organization [employer] Address [address] [place] [address] Care Team Providers Care Vp Marketing Name Role Phone Stephen East MD Primary Care Prov ider Allergies Active Allergy Reactions Criticality Noted Date Comments Penicillins 06/28/2022 Medications naproxen (Naprosyn) 500 MG tablet TAKE 1 TABLET BY MOUTH TWICE DAILY WITH FOOD 60 tablet 1 3 Active spironolactone (Aldactone) 25 MG tablet Take 1 tablet (25 mg) by mouth Once per day. 90 tablet 3 5 07/17/19 26 Active pravastatin (Pravachol) 80 MG tabletIndications:M ixed hyperlipidemia Take 1 tablet (80 mg) by mouth Once per day. 90 tablet 3 5 07/17/19 26 Active omeprazole (PriLOSEC) [address] capsuleIndications: Gastroesophageal reflux disease without esophagitis Take 1 capsule (20 mg) by mouth before breakfast. Do not crush or chew. 90 capsule 3 5 07/17/19 26 Active lisinopril 40 MG tabletIndications:P rimary hypertension Take 1 tablet (40 mg) by mouth Once per day. 90 tablet 3 5 07/17/19 26 Active levothyroxine (Synthroid, Levoxyl) 100 MCG tablet TAKE 1 TABLET(100 MCG) BY MOUTH IN THE MORNING 90 tablet 3 5 Active dilTIAZem CD (Cardizem CD) 240 MG 24 hr capsule Take 1 capsule (240 mg) by mouth Once per day. 90 capsule 3 5 07/17/19 26 Active cholecalciferol VITAMIN D (Vitamin D-3) 50 MCG (2000 UT) capsuleIndications: Acquired hypothyroidism Take 1 capsule (50 mcg) by mouth Once per day. 90 capsule 3 5 07/17/19 26 Active cyclobenzaprine (Flexeril) 10 MG tabletIndications:A cute pain of right shoulder Take 1 tablet (10 mg) by mouth 3 times daily for 10 days. 30 tablet 5 Active Active Problems Problem Noted Date Diagnosed [...] 1:40 PM EST): Done on 07/2017 at [facility] due in 10 years Primary hypertension 06/28/2022 Assessment & Plan (12/15/2024 1:44 PM EDT): Controlled, keep low sodium diet and exercise as tolerated, follow up in 3 months Assessment & Plan (07/16/2024 12:33 PM EDT): Controlled, continue low sodium diet and exercise as tolerated, keep bp log, target<140/90 Assessment & Plan (06/12/2024 11:28 AM EDT): [...] 03/14/2022 Acquired hypothyroidism 01/23/2022 Assessment & Plan (07/16/2024 12:34 PM EDT): Clinically and chemically euthyroid, no changes will be made Assessment & Plan (06/12/2024 11:28 AM EDT): New labs ordered for guidance of therapy Assessment & Plan (05/23/2023 2:41 PM EST): On levothyroxine 100mcg, new labs will be ordered for guidance of therapy Encounters Date Type Department Care Team Description 12/24/2024 Patient Outreach [facility] [address] [place] [address] Stephen East MD Medicare Annual Wellness Visit Initial (AWV unscheduled) 12/18/2024 Telephone [facility] [address] [place] [address] Stephen East MD Prior Authorization 12/15/2024 1:15 PM EDT Telemedicine [facility] [address] [place] [address] Stephen East MD Acute pain of right shoulder (Primary Dx); Primary hypertension; Prediabetes 12/15/2024 Travel 12/02/2024 Telephone [facility] [address] [place] [address] Stephen East MD Nurse Triage 11/10/2024 Orders Only [facility] [address] [place] [address] Stephen East MD 10/15/2024 Telephone [facility] [address] [place] [address] Stephen East MD No Show 10/15/2024 Telephone [facility] [address] [place] [address] Stephen East MD 10/14/2024 Telephone [facility] [address] [place] [address] Stephen East MD Chart Prep from Last 3 Months Immunizations Immunization Administration Dates Next Due TD (adult), 2 Lf tetanus tox oid, preservative free, adsorbed 10/07/2004 Social History Tobacco Use Types Packs/Day Years Used Date Smoking Tobacco: Never Smokeless Tobacco: Never Tobacco Cessation:Counseling Given: Not Answered Alcohol Use Standard Drinks/Week Comments Yes 0 (1 standard drink = 0.6 oz pur e alcohol) Socially Depression Answer Date Recorded Patient Health Questionnaire-9 Score 0 07/16/2024 Patient Health Questionnaire-9 Score 0 07/16/2024 Last PHQ-9: Questionnaire Data Not on file 0 07/16/2024 Housing Stability Answer Date Recorded What is [...] Date Recorded Patient Health Questionnaire-2 Score 0 07/16/2024 Internet Access Answer Date Recorded Internet Access [...] Sign Reading Time Taken Comments Blood Pressure 136/77 12/15/2024 1:10 PM EDT Pulse 70 12/15/2024 1:10 PM EDT Temperature 37.1 C (98.7 F) 01/29/2024 11:49 AM EST Respiratory Rate 20 01/29/2024 11:49 AM EST Oxygen Saturation - - Inhaled Oxygen Concentration - - Weight 69.4 kg (153 lb) 01/29/2024 11:49 AM EST Height 160 cm (5' 3 ) 01/29/2024 11:49 AM EST Body Mass Index 27.1 01/29/2024 11:49 AM EST Plan of Treatment Health Maintenance Due Date Last Done Comments Eye Exam 1960 Hepatitis A Vaccines (1 of 2 - Risk 2-dose series) 08/12/1967 Pneumococcal Vaccine: 50+ Years (1 of 2 - PCV) 08/12/1967 Zoster Vaccines (1 of 2) 1998 DTaP/Tdap/Td Vaccines (1 - Tdap) 10/08/2004 10/07/2004 Hepatitis B Vaccines (1 of 3 - Risk 3-dose series) 2008 RSV Patients and Patients Aged 60 years or older (1 - 1-dose 75+ series) 08/12/2023 Diabetes: Foot Exam 01/24/2024 01/23/2023, 01/23/2023, 01/23/2023, Additional history exists Diabetes: Hemoglobin A1C 07/28/20242 024, 01/23/2023, 03/29/2022, Additional history exists COVID-19 Vaccine ( season) 2024 08/05/2020, 07/08/2020 Influenza Vaccine (#1) 2024 Tobacco Screening 01/28/2025 01/29/2024 SDOH Screening 02/04/2025 02/05/2024 Diabetes: Urine Protein Screening 06/20/2025 06/20/2024 Lipid Panel 06/20/2025 06/20/2024, 03/2 03/2023, 08/24/2021, Additional history exists Alcohol/Substance Use Screening 07/16/2025 07/16/2024 Depression Screening 07/16/2025 07/16/2024, 07/17/19 25 Colonoscopy Discontinued 07/31/2017 Colorectal Cancer Screening Discontinued Hepatitis C Screening Completed 08/24/2021 CT Colonography Discontinued FIT DNA/Cologuard Discontinued FIT Discontinued FOBT Discontinued HIB Vaccines Aged Out No longer eligi [...] on patient's age to complete this topic Sigmoidoscopy Discontinued Procedures Procedure Name Priority Date/Time Associated Diagnosis Comments BI MAMMOGRAM SCREENING TOMOSYNTHESIS BILATERAL Routine 11/10/2024 12:55 PM EDT ALBUMIN, RANDOM URINE W/CREATININE Routine 06/20/2024 10:30 AM EDT Prediabetes LIPID PANEL, STANDARD Routine 06/20/2024 10:26 AM EDT Mixed hyperlipidemia POCT GLYCATED HEMOGLOBIN, TOTAL Routine 01/29/2024 1:25 PM EST Type 2 diabetes mellitus without complication, without long-term current use of insulin (CMS/HCC) ZZZ HISTORICAL HEPATITIS C AB W/REFL TO HCV RNA, QN, PCR Routine 08/24/2021 11:02 AM EDT HM COLONOSCOPY Routine 07/31/2017 1:22 PM EDT from Last 3 Months or Most Recently Relevant to Health Maintenance Results * BI Mammogram Screening Tomosynthesis Bilateral (11/10/2024 12:55 PM EDT) Anatomical Region Laterality Modality Breast Bilateral Mammography 11/10/2024 12:5 5 PM EDT Narrative 11/14/2024 6:17 PM EDT [facility] [address] [place] [address] Mammography Report Signed Patient: Key Diaz MR#: [id number] : 1950 Acct:[id number] Age/Sex: 74 / F ADM Date: 11/10/24 Loc: HO.MAMMO Attending Dr: Stephen Coelho MD Ordering Physician: Stephen East MD Res ults: 2Benign Findings Date of Service: 11/10/24 Follow Up: 1 Year From Orig inal Mammogram Procedure(s): MM tomosynthesis screening BI Accession Number(s): [id number] cc: Stephen East MD EXAMINATION: MM SCREENING DIGITAL BREAST TOMOSYNTHESIS, BILATERAL CLINICAL INFORMATION: Screening. Asymptomatic. COMPARISON: Comparison made to multiple prior, most recent February 06, 2023, and most remote April 16, 2019. TECHNIQUE: Digital breast tomosynthesis is performed in both the craniocaudal and mediolateral oblique views along with computer-aided detection (CAD). Synthesized 2D images are generated from the tomosynthesis. FINDINGS: BREAST COMPOSITION: There are scattered areas of fibroglandular density (ACR BI-RADS breast composition Category b). RIGHT BREAST: No significant masses, suspicious calcifications or other abnormalities are seen. LEFT BREAST: History of previous excisional biopsy. No significant masses, suspicious calcifications or other abnormalities are seen. MM/MM tomosynthesis screening BI IMPRESSION: BILATERAL BREASTS: Benign, no mammographic evidence of malignancy. Normal interval follow-up is recommended in 12 months. ASSESSMENT: BI-RADS 2 - Benign Findings RECOMMENDATION: Routine annual mammography screening. FOLLOW-UP: 1 year F/U This examination should not preclude the clinical evaluation of a suspicious palpable abnormality. This patient's information was entered into a reminder system with a target due date for their next mammogram. Electronically signed by: Mo Wayne MD 11/14/2024 06:14 PM EDT Dictated By: Mo Wayne MD Signed By: <Electronically signed by Mo Wayne MD in OV> 11/14/24 1814 DD/ 1255 TD/TT: 11/10/24 1320 Fruit Trimmer: Procedure Note Donotuseinterpreter, Image - 11/14/2024 [facility] [address] [place], [place] [address] Mammography Report Signed Patient: Elvi DiazR#: [id number] 606 : 9Acct:[id number] Age/Sex: 74 / FADM Date: 11/10/24 Loc: HO.MAMMO Attending Dr: Stephen Coelho MD Ordering Physician: Stephen East ults: 2Benign Findings Date of Service: 11/10/24Follow Up: 1 Year From Orig inal Mammogram Procedure(s): MM tomosynthesis screening BI Accession Number(s): [id number] cc: Stephen East MD EXAMINATION: MM SCREENING DIGITAL BREAST TOMOSYNTHESIS, BILATERAL CLINICAL INFORMATION: Screening. Asymptomatic. COMPARISON: Comparison made to multiple prior, most recent February 06, 2023, and most remote April 16, 2019. TECHNIQUE: Digital breast tomosynthesis is performed in both the craniocaudal and mediolateral oblique views along with computer-aided detection (CAD). Synthesized 2D images are generated from the tomosynthesis. FINDINGS: BREAST COMPOSITION: There are scattered areas of fibroglandular density (ACR BI-RADS breast composition Category b). RIGHT BREAST: No significant masses, suspicious calcifications or other abnormalities are seen. LEFT BREAST: History of previous excisional biopsy. No significant masses, suspicious calcifications or other abnormalities are seen. MM/MM tomosynthesis screening BI IMPRESSION: BILATERAL BREASTS: Benign, no mammographic evidence of malignancy. Normal interval follow-up is recommended in 12 months. ASSESSMENT: BI-RADS 2 - Benign Findings RECOMMENDATION: Routine annual mammography screening. FOLLOW-UP: 1 year F/U This examination should not preclude the clinical evaluation of a suspicious palpable abnormality. This patient's information was entered into a reminder system with a target due date for their next mammogram. Electronically signed by: Mo Wayne MD 11/14/2024 06:14 PM EDT RP Dictated By: Mo Wayne MD Signed By: <Electronically signed by Mo Wayne MD in OV> 11/14/24 1814 DD/ 1255 TD/TT: 11/10/24 1320 Fruit Trimmer: us Stephen Coelho MD IMG BI PROCEDURES Final Result * Albumin, Random Urine W/Creatinine (06/20/2024 10:30 AM EDT) Creatinine, Urine 166.26 mg/dL [facility] Microalbumin Urine 11.0 mg/L [facility] Microalbum Creatinine Ratio Ur 6.6 <30 ug/mg cr [facility] Comment:Albumin/Creatinine R atio Reference Ranges: Normal: < 30 ug/mg creatinine Microalbuminuria: 30 - 300 ug/mg creatinineClinical Albuminuria: > 300 ug/mg creatinine Urine (Urine, Random) 06/20/2024 10:30 AM EDT 06/20/2024 1:55 PM EDT us Stephen Ceolho MD LAB URINE ORDERABL ES Final Result [facility] [address] [place] [address] [phone] * (ABNORMAL) Lipid Panel, Standard (06/20/2024 10:26 AM EDT) Triglycerides 135 <150 mg/dL [facility] Comment:Desirable Triglyceri de: less than 150 mg/dLBorderline High Triglyceride 150-199 mg/dLHigh Triglyceride: 200-499 mg/dLVery High Triglyceride: greater than or equal to 5OO mg/dL Cholesterol 198 <200 mg/dL [facility] Comment:Desirable Cholestero l: less than 200 mg/dLBorderline High Cholesterol: 200-239 mg/dLHigh Cholesterol: greater than 239 mg/dL LDL Cholesterol Calculated 131(H) <100 mg/dL [facility] Comment:Desirable LDL: less than 100 mg/dLNear Optimal/Above Optimal LDL: 110- 129 mg/dLBorderline High LDL: 130-159 mg/dLHigh LDL: 160-189 mg/dLVery High LDL: greater than or equal to 190 mg/dL HDL Cholesterol 40(L) >40 mg/dL [facility] Comment:Desirable HDL: great er than 40 mg/dL Note: This HDL assay may give artificially low results in patients with liver disease. Blood Venous blood specimen / Unknown 06/20/2024 10:26 AM EDT 06/20/2024 1:57 PM EDT Stephen Coelho MD LAB BLOOD ORDERABL ES Final Result [facility] [address] [place] [phone] * (ABNORMAL) POCT HGB A1C (01/29/2024 1:25 PM EST) Hemoglobin A1C 6.1(A) 4.0 - 6.0 % QC Media Lot # [id number] Lot# Expiration Date Blood 01/29/2024 1:25 PM EST Stephen Coelho MD POINT OF CARE TEST ENTER/EDIT ORDERABLES Final Result * HEPATITIS C AB W/REFL TO HCV RNA, QN, PCR (08/24/2021 11:02 AM EDT) HEPATITIS C ANTIBODY NON-REACT [facility] NON-REACT [facility] INDEX 0.06 <1.00 [facility] Comment: HCV antibody was non-reactive. There is no laboratory evidence of HCV infection. In most cases, no further action is required. However, if recent HCV exposure is suspected, a test for HCV RNA (test code 98117) is suggested. For additional information please refer to http://education.Secerno/faq/AYD69i3 (This link is being provided for informational/ educational purposes only.) 08/24/2021 11:0 2 AM EDT Stephen Coelho MD HISTORICAL/NON ORD ERABLE LABS Final Result [facility] [address] * Hm Colonoscopy (07/31/2017 1:22 PM EDT) Historical Provider HEALTH MAINTENANCE Final Result from Last 3 Months or Most Recently Relevant to Health Maintenance Insurance MEDICARE [facility] [place] [id number] [place] [address] Care Teams Vp Marketing Relationship Specialty Start Date End Date AndreaStephen Bajwa MD [address] [place] [address] [place] [phone] PCP - General Internal Medicine 08/12/19
--- OUTSIDE RECORDS SUMMARY | 2025-01-13 11:10 | XMS_ITS | Clinical Summary ---
Author Organization [facility] Address [address] [place] [address] Phone Care Team Providers Care Director Product Safety Name Role Phone Stephen East Primary Care [...] Patients (1 - 1-dose 75+ series) 08/12/2023 Falls Risk Assessment 02/22/2024 Hepatitis C Screening 02/22/2024 Medicare Annual Wellness Visit 02/22/2024 Osteoporosis Screening (Bone Density Screening) 02/22/2024 Social Influencers of Health Screening 02/22/2024 Depression Screening 03/19/2024 COVID-19 Vaccine (3 - 2024-2 6 season) 2024 08/05/2020, 07/08/2020 Influenza Vaccine (#1) 2024 Hypertension/CHF/CAD Annual BMP [...] OF THE [facility] # 7 ACHIEVE RIGHT PLASTIC SURGERY MANAGER TO AT LEAST 25 POUNDS = 50 PERCENT OF THE LEFT Insurance MEDICARE MEDICAID - [place] Care Teams Director Product Safety Relationship Specialty Start Date End Date Stephen East [address] [place] [phone] PCP - General Internal Medicine 06/04/24
--- OUTSIDE RECORDS SUMMARY | 2025-01-13 11:10 | XMS_ITS | Encounter Summary ---
Author Organization [employer] Address [address] 7t [place] [address] Care Team Providers Care Cosmetic Consultant Name Role Phone Stephen East MD Primary Care Prov ider Encounter Details Date Type Department Care Team ([facility] st Contact Info) Description 03/14/2022 Telephone [facility] [address] [place], [place] [phone] Stephen East MD [address] [place] [address] Social History Tobacco Use Types Packs/Day Years [...] on filedocumented in this encounter Care Teams Cosmetic Consultant Relationship Specialty Start Date End Date Stephen East MD [address] [place] [address] PCP - General Internal Medicine 08/12/19 documented as of this encounter
--- OUTSIDE RECORDS SUMMARY | 2025-01-13 11:10 | XMS_ITS | Encounter Summary ---
Author Organization [employer] Address [address] [place] [address] Care Team Providers Care Health Analyst Name Role Phone Stephen East MD Primary Care Prov ider Encounter Details Date Type Department Care Team (Late st Contact Info) Description 03/29/2022 Orders Only [facility] [address] [place] [address] Stephen East MD [address] [place] [address] Social History Tobacco Use Types Packs/Day Years [...] on filedocumented in this encounter Care Teams Health Analyst Relationship Specialty Start Date End Date Stephen East MD [address] [place], [place] [phone] PCP - General Internal Medicine 08/12/19 documented as of this encounter
--- OUTSIDE RECORDS SUMMARY | 2025-01-13 11:10 | XMS_ITS | Encounter Summary ---
Author Organization [facility] Address [address] [facility] [address] [place] [address] Care Team Providers Care Client Engagement Specialist Name Role Phone Stephen East MD Primary Care Prov ider Encounter Details Date Type Department Care Team (Late st Contact Info) Description 08/05/2024 Orders Only [facility] [address] [place] [address] Provider, MD Sasha Social History Tobacco Use [...] on file documented as of this encounter Procedures Procedure Name Priority Date/Time Associated Diagnosis Comments XR FINGERS 2+ VIEWS RIGHT Routine 08/04/2024 11:46 AM EDT documented in this encounter Results * XR Fingers 2+ Views Right (08/04/2024 11:46 AM EDT) Anatomical Region Laterality Modality Upper Extremities, Fingers Right [facility] us Historical Provider [facility] XR PROCEDURES Final R esult documented in this encounter Visit Diagnoses Not on filedocumented in this encounter Additional Health Concerns Assessment Noted Time PHQ-9 Depression Total Score: 0 07/17/19 25 10:58 AM EDT documented as of this encounter Care Teams Client Engagement Specialist Relationship Specialty Start Date End Date Stephen East MD [address] [place] [phone] PCP - General Internal Medicine 08/12/19 documented as of this encounter
--- OUTSIDE RECORDS SUMMARY | 2025-01-13 11:10 | XMS_ITS | Encounter Summary ---
Author Organization [employer] Address [address] [place] [address] Care Team Providers Care Fiscal Specialist Name Role Phone Stephen East MD Primary Care Prov ider Encounter Details Date Type Department Care Team (Late st Contact Info) Description 07/06/2023 Orders Only [facility] [address] [place] [address] Provider, MD Sasha Social History Tobacco Use [...] * Hm Colonoscopy (07/31/2017 1:22 PM EDT) us Historical Provider HEALTH MAINTENANCE Final Result documented in this encounter Visit Diagnoses Not on filedocumented in this encounter Additional Health Concerns Assessment Noted Time PHQ-9 Depression Total Score: 0 01/24/20 23 1:40 PM EST documented as of this encounter Care Teams Fiscal Specialist Relationship Specialty Start Date End Date Stephen East MD [address] [place] [phone] PCP - General Internal Medicine 08/12/19 documented as of this encounter
[2025-01-13 14:30] LABS: MANUAL DIFF FLAG NO
[2025-01-13 14:36] LABS: Hematocrit 37.0 % (37.0-47.0); Hemoglobin 11.7 g/dl (12.0-16.0); Imm Gran Abs Auto 0.01 X10*3/uL (0.00-0.03); Imm Gran Pct Auto 0.2 % (0.0-0.4); Lymphocytes Absolute Auto 1.8 X10*3/uL (1.2-4.9); Mean Corpuscular HGB Conc 31.6 g/dl (31.0-35.0); Mean Corpuscular Hemoglobin 26.4 pg (27.0-33.0); Mean Corpuscular Volume 83.5 fL (80.0-98.0); NRBC Abs Auto 0.000 X10*3/uL (0.0-0.012); NRBC Pct Auto 0.0 /100WBC (0.0-0.2); Platelet Count 237 X10*3/uL (160-400); Red Blood Count 4.43 X10*6/uL (4.20-5.50); White Blood Count 6.3 X10*3/uL (4.8-10.8)
[2025-01-13 14:43] LABS: Alanine Aminotransferase 20 U/L (0-31); Albumin Level 4.2 g/dL (3.5-5.0); Alkaline Phosphatase 149 U/L (39-117); Anion Gap 11 (12-20); Aspartate Amino Transferase 38 U/L (5-31); Blood Urea Nitrogen 14 mg/dL (9-16); Calcium 9.9 mg/dL (8.4-10.2); Carbon Dioxide 24 mmol/L (22-29); Chloride 112 mmol/L (96-108); Cholesterol 151 mg/dL (<200); Estimated Glomerular Filt Rate > 60; HDL Cholesterol 41 mg/dL (>40); Potassium 3.9 mmol/L (3.3-5.1); Sodium 143 mmol/L (135-145); Total Protein 7.5 g/dL (6.5-8.0); Triglycerides 104 mg/dL (<150)
== END 2025-01-13 09:40 | disposition home or self-care (01) ==
LOC: HO.CHCLDS 09:39
PROVIDERS: Visit Provider Internal Medicine
DX: I10 Essential (primary) hypertension (principal); R73.03 Prediabetes
CPT/HCPCS: 36415; 80053; 80061; 83036; 85025